=== PATIENT | female | born 1970 | race African-American/Black ===

== ENCOUNTER 2018-04-17 10:36 | Day surgery (SDC) | payer MEDICAID ==
[~2018-04-17 10:36] MED LIST: CEFAZOLIN 1 GM/50 ML (PMX) 50 ML IVPB
[2018-04-17] MEDS: SOD CHLORIDE 0.9% 1,000 ML IV (11:15)
[2018-04-17] MEDS ORDERED: FENTAnyl 50 MCG/ML VIAL (11:55)
[2018-04-17] MEDS ORDERED: MIDAZOLAM 1 MG/ML 2 ML INJ (11:55)
[2018-04-17] MEDS ORDERED: ONDANSETRON 4 MG INJ IV (12:00)
[2018-04-17] MEDS ORDERED: FENTAnyl 50 MCG/ML VIAL IV ×3 (12:00)
[2018-04-17] MEDS ORDERED: OXYCODONE/ACETAMINOPHEN (5/325) TAB PO (12:00)
[2018-04-17] MEDS ORDERED: PROCHLORPERAZINE 10 MG INJ IV (12:00)
[2018-04-17] MEDS ORDERED: HYDROmorphONE 1 MG/5 ML IV SYRINGE IV ×3 (12:00)
[2018-04-17] MEDS ORDERED: MEPERIDINE 25 MG INJ IV (12:00)
[2018-04-17] MEDS ORDERED: DIPHENHYDRAMINE 50 MG INJ IV (12:00)
[2018-04-17] MEDS ORDERED: LIDOCAINE 2% (SDV) 5 ML INJ (12:04)
[2018-04-17] MEDS ORDERED: DEXAMETHASONE 4 MG/ML 1 ML INJ (12:04)
[2018-04-17] MEDS ORDERED: FAMOTIDINE 20 MG INJ (12:04)
[2018-04-17] MEDS ORDERED: PROPOFOL 20 ML (12:04)
[2018-04-17] MEDS ORDERED: ONDANSETRON 4 MG INJ (12:04)
[2018-04-17] MEDS ORDERED: CEFAZOLIN 1 GM INJ (12:04)
[2018-04-17] MEDS ORDERED: ACETAMINOPHEN 1000MG/100ML IV 100 ML (12:15)
[2018-04-17] MEDS ORDERED: EPHEDrine 25 MG/5 ML SYG (12:27)
[2018-04-17] MEDS: BUPIVACAINE 0.5% (SDV) 30 ML INJ (12:31)
[2018-04-17] MEDS ORDERED: oxyCODONE 5 MG TAB PO (13:00)
[2018-04-18] MEDS ORDERED: INFLUENZA VIRUS VACCINE 0.5 ML (DISPENSING) IM* (09:00)
== END 2018-04-17 14:35 | disposition home or self-care (01) ==
LOC: SUR 10:36 → SDS 10:36 → SUR 14:35
DX: N60.91 Unspecified benign mammary dysplasia of right breast (principal); N60.01 Solitary cyst of right breast
CPT/HCPCS: 19120; 84703; 88307